=== PATIENT | male | born 1950 | race Caucasian/White ===

== ENCOUNTER 2016-12-29 06:05 | Inpatient (IN) ==
[2016-12-29] MEDS ORDERED: Albuterol 2.5 MG/3 ML NEBULIZER IH ONE (06:23)
[2016-12-29] MEDS ORDERED: Vancomycin 1,500 MG in D5% in Water 250 ML IVPB ONE (06:23)
[2016-12-29] MEDS ORDERED: Heparin 1,000 UNITS/500 mL NS 500 ML ONE (06:23)
[2016-12-29] MEDS ORDERED: Lidocaine 1% 20 ML MDV ID ONE (06:23)
[2016-12-29] MEDS ORDERED: CeFAZolin Pre 2,000 MG/100 ML 2,000 MG/100 ML BAG IVPB ONE (06:23)
[2016-12-29] MEDS ORDERED: Ringers Solution, Lactated 1,000 ML IVC SCH (06:30)
[2016-12-29] MEDS ORDERED: *HR* Propofol 200 MG/20 ML VIAL IVP ONE (06:35)
[2016-12-29] MEDS ORDERED: *HR* FentaNYL (PF) 100 MCG/2 ML VIAL ONE ×3 (06:35→11:59)
[2016-12-29] MEDS ORDERED: *HR* Midazolam HCl 2 MG/2 ML VIAL ONE ×2 (06:35→10:32)
[2016-12-29] MEDS ORDERED: *HR* Succinylcholine 200 MG/10 ML VIAL IVP ONE (06:37)
[2016-12-29] MEDS ORDERED: *HR* Heparin 5,000 UNIT/ML VIAL ONE ×2 (06:37→14:10)
[2016-12-29] MEDS ORDERED: Dexamethasone 4 MG/ML VIAL ONE ×2 (06:37→10:29)
[2016-12-29] MEDS ORDERED: Lidocaine -MPF 2% 2 ML VIAL ONE ×3 (06:37→10:29)
[2016-12-29] MEDS ORDERED: *HR* Phenylephrine 10 MG/ML VIAL ONE (06:37)
[2016-12-29] MEDS ORDERED: Lidocaine -MPF 4% 5 ML AMPUL ONE (06:37)
[2016-12-29] MEDS ORDERED: *HR* Rocuronium Bromide 50 MG/5 ML VIAL ONE ×2 (06:37→10:25)
[2016-12-29] MEDS ORDERED: Ondansetron 4 MG/2 ML VIAL ONE ×2 (06:37→10:29)
[2016-12-29] MEDS ORDERED: *HR* Remifentanil 2 MG VIAL IVP ONE ×2 (06:45→10:36)
[2016-12-29] MEDS ORDERED: Vancomycin 1,000 MG VIAL ONE (06:46)
[2016-12-29] MEDS ORDERED: Heparin 1,000 UNITS/500 mL NS 2,000 ML ONE (06:47)
[2016-12-29] MEDS ORDERED: EPHEDrine 50 MG/ML VIAL ONE (07:11)
[2016-12-29] MEDS ORDERED: Water for inj. (sterile) 10 ML IV ONE ×3 (07:11→13:20)
--- NOTE | 2016-12-29 07:46 | History & Physical Report ---
Date of Encounter: 12/29/16 Time of Encounter: 07:25 24 Hour HP Update - Instructions Instructions: If the History and Physical is less than 30 days old and was completed prior to A.M. admission and or procedure and has NOT been updated on calendar day of procedure please complete this update prior to performing procedure. - Update Patient reports changes in Medical Condition: No Changes in assessment/condition: No Changes in Medication: No Preop tests/diagnostics Reviewed: Yes Surgery Remains Indicated: Yes Consent for Planned Operative Procedure(s) Verified: Yes - Pre-Operative Checklist Preoperative Checklist Indicated: Yes Prophylactic Antibiotic Ordered: Yes (Vancomycin due to risk of MRSA) Home Medications Include Beta Deidre: Yes Beta Deidre Taken Today (Day of Surgery): Yes Beta Deidre Taken Yesterday (Day Prior to Surgery): Yes Is VTE Prophylaxis Indicated?: Yes
--- NOTE | 2016-12-29 09:37 | Anesthesia Evaluation PreOp ---
Date of Encounter: 12/29/16 Time of Encounter: 09:35 - Past History Planned Operation: Endovascular AAA repair Cardiac History: [place], HTN, Hyperlipidemia, Other (AAA) Pulmonary History: Smoker, COPD WHIZZER History: Denies Any Significant HX Other Medical History: Renal (renal stones) Alcohol Use: none, unknown Drug use: none Medications and Allergies Albuterol Sulfate [Ventolin Hfa] 2 puff IH Q4H PRN 12/29/16 [History] Amlodipine Besylate [Amlodipine Besylate] 10 mg PO DAILY 12/29/16 [History] Atenolol [Tenormin] 50 mg PO DAILY 12/29/16 [History] Atorvastatin Calcium [Atorvastatin Calcium] 80 mg PO DAILY 12/29/16 [History] Escitalopram [Lexapro] 20 mg PO DAILY 12/29/16 [History] Hydrochlorothiazide [Hydrochlorothiazide] 25 mg PO DAILY 12/29/16 [History] Omeprazole 20 mg PO DAILY 12/29/16 [History] Ramipril [Ramipril] 10 mg PO BID 12/29/16 [History] TraZODone 50 mg PO HS 12/29/16 [History] Allergies No Known Allergies Allergy (Verified 12/29/16 06:54) - Meds/Allergy Pre-op Review Medications Reviewed: Yes Allergies Reviewed: Yes Beta Blockers on Current Med List: Yes If Beta Blockers taken, Date/Time (Last Dose taken): 12-29-16 atenolol midnight Anesthesia Results - Labs Laboratory Tests 12/23/16 12/23/16 12/23/16 15:58 15:58 15:58 WBC 7.2 Hgb 16.8 Hct 49.8 Plt Count 223 PT 11.1 INR 1.0 APTT 29.7 Sodium 135 L Potassium 4.2 Chloride 101 Carbon Dioxide 27 BUN 10 Creatinine 0.81 Est GFR ( Amer) > 60 Est GFR (Non-Af Amer) > 60 BUN/Creatinine Ratio 12 Glucose 103 H Calculated Osmolality 279 L Calcium 9.5 - Imaging EKG: report reviewed, image reviewed (SR, nonspecific ST & T wave abnormality) Additional studies: -2016 Regadenoson Nuclear Stress: No sign ECG changes with regadenoson Gated LVEF 56% there is a small, mod-severe intensity, fixed perfusion defect in the basal- apical inferior wall findings are consistent with small-medium sized prior [place] in inferior wall no evidence of reversible ischemia Anesthesia Exam Last Vital Signs Temp 98.4 F 12/29/16 06:31 Pulse 75 12/29/16 06:31 Resp 18 12/29/16 06:31 BP 149/86 12/29/16 06:31 Pulse Ox 91 L 12/29/16 06:31 Weight: 92 kg NPO (# of Hours): >> 8 hrs - HEENT Pupil (Motor): Pupils equal, EOMI Mallampati: II Teeth: Edentulous Denture Type: Upper: Complete, Lower: Complete Oral Opening: Greater than 3 - WHIZZER LOC: Oriented WHIZZER Motor: Normal RUE, Normal LUE, Normal RLE, Normal LLE, Normal Face - Cardiac Rhythm: Regular Murmur: None - Pulmonary Breath Sounds: bilateral Clear (wheezing bilaterally) Respiratory Effort: Symmetrical Anesthesia Assess/Plan ASA Score: 3 Modified Conley Scale for Level of Consciousness: Cooperative, oriented, and tranquil Anesthetic Plan: General Monitoring Plan: Standard Monitors, A-Line Recovery Plan: PACU
--- NOTE | 2016-12-29 13:10 | Anesthesia Procedures ---
Date of Encounter: 12/29/16 Time of Encounter: 11:00 Procedures: Anesthesia - Arterial Line Consent obtained: verbal consent Time out performed: Yes Sedation: Versed (mg): 2 Sedation: Fentanyl (mcg): 100 Supplemental Oxygen via Nasal Cannula (L/min): 4 Local Anesthetic: Lidocaine 1% Amount of Anesthetic used (mls): 0.5 Size (Gauge): 20 Length (inches): 1 3/4 Technique Used: sterile prep, direct puncture technique Post-Procedure: line taped into place Patient tolerated procedure: well Complications: none Site: Radial L Vitals: Vital Signs/O2 Sat/Glucose, Most Current Pulse Resp BP Pulse Ox 12/29/16 11:22 75 16 126/80 97 12/29/16 11:20 73 16 132/88 96 Comments: performed by KELLY Adler with Dr. Yo supervising.
[2016-12-29] MEDS ORDERED: *HR* HYDROmorphone (PF) 1 MG/ML SYRINGE IVP PRN (14:05)
[2016-12-29] MEDS ORDERED: *HR* Labetalol 100 MG/20 ML MDV IVP PRN (14:05)
[2016-12-29] MEDS ORDERED: Neostigmine Methylsulfate 3 MG/3 ML SYRINGE ONE (14:07)
[2016-12-29] MEDS ORDERED: Water for inj. (sterile) 20 ML IV ONE (14:28)
[2016-12-29] MEDS ORDERED: *HR* HYDROmorphone 2 MG/ML SYRINGE ONE (14:51)
--- NOTE | 2016-12-29 15:26 | Operative Note ---
Date of procedure: 12/29/16 Pre-op diagnosis: AAA Post-op diagnosis: same Procedure: 1. Introduction of catheter into the aorta via right common femoral artery. 2. Introduction of catheter into the aorta via left common femoral artery. 3. Right femoral vessel exposure for endograft placement. 4. Left femoral vessel exposure for endograft placement. 5. Endograft repair of abdominal aortic aneurysm with Cook Zenith graft and two docking limbs including radiologic supervision and interpretation. Complications: None Anesthesia: GETA Surgeon: Jun Verdugo [facility] Interpreter: Ugo Hardin Estimated blood loss (cc): 100 Specimen: None Condition: stable Disposition: PACU Procedure in Detail: Indications: The patient is a 66 year old male who was found to have a large infrarenal abdominal aortic aneurysm. His anatomy was acceptable for endograft placement. Surgery was recommended to reduce his risk of rupture. Procedure: The patient was identified, brought to the operating room and placed in the supine position on the operating room table. After induction of general endotracheal anesthesia, the patient was cleaned and draped in normal sterile fashion. Oblique incisions were made over both groins sharply. Hemostasis was obtained with electrocautery. Using blunt and sharp and electrocautery dissection, the bilateral common, deep and superficial femoral arteries were dissected circumferentially and surrounded with Vesseloops. The patient received 5000 units of heparin intravenously and then bilateral femoral punctures with large-bore needles were performed. Bentson wires were advanced into the aorta under fluoroscopic view. Given the anatomy, the main body was selected to be the right side of the patient. The needles were exchanged for bilateral #8-Upper Sorbian sheaths and a long Pigtail catheter was advanced over the right wire into the aortic arch. The wire was replaced with a Lunderquist wire. The catheter was removed and repositioned in the suprarenal aorta via the left femoral artery. The main body was inserted over the Lunderquist wire with the contralateral limb being in the anterolateral position. An aortogram was then performed at the level of the renal artery. The graft was positioned just inferior to the renal arteries and the first 2 segments were deployed. Again an aortogram revealed adequate infrarenal placement. The graft was then further opened to the contralateral limb exposed. A final angiogram was performed confirming adequate infrarenal placement. The suprarenal stent was deployed in the usual fashion. The contralateral limb was then selected with a Bentson wire using a guiding catheter. Intragraft placement of the wire was confirmed by placing the pigtail and spinning it freely as well as injecting a small amount of contrast. An oblique view of the pelvis was performed with contrast to size the left extension limb. The #8-Upper Sorbian sheath was removed and exchanged for the appropriate limb, which was advanced under fluoroscopic view and positioned. It was then expanded. The introducer was removed. The remaining portion of the main body was deployed, the top cap was retrieved and the introducer was removed. An oblique view of the right pelvis was performed in a similar fashion to determine the length of the graft on the right. The graft extension was then advanced on the right and positioned in the usual fashion. Upon completion of the graft docking limb extension, a Coda balloon was then advanced into the graft proximal and distal endpoints as well as overlap were expanded with gentle pressure. The balloon was left in the suprarenal position and a Flush catheter was placed in the suprarenal aorta. A Flush completion angiogram revealed no evidence of an endoleak. Tension was applied to the Vesseloops in the groin. The bilateral sheaths were then removed. After confirming hemodynamic stability, the wires were then removed. The bilateral arteriotomies were repaired with a running 6-0 Prolene. Antibiotic irrigation was infused into the groin. Platelet rich and platelet poor plasma were infused into the incisions. The bilateral groins were closed with a single layer of 2-0 Vicryl followed by two layers of 3-0 Vicryl followed by a layer of 3-0 monocryl in the subcuticular region. Sterile dressings were applied. The patient was then extubated and taken to the recovery room in stable condition. DEVICE SIZES: 1. Main body, 28 x 82. 2. Contralateral leg, 13 x 107. 3. Ipsilateral leg, 13 x 107.
--- NOTE | 2016-12-29 15:52 | Anesthesia Evaluation Post Op ---
Date of Encounter: 12/29/16 Time of Encounter: 15:51 - Vital Signs Vital Signs: Last Vital Signs Temp 97.4 F L 12/29/16 15:47 Pulse 91 12/29/16 15:47 Resp 16 12/29/16 15:47 BP 114/67 12/29/16 15:47 Pulse Ox 93 L 12/29/16 15:47 - Lungs Lungs: Clear Ascult./Percussion - Airway Airway: Non-obstructed - Cardiovascular Regular Rate - Mental Status Mental Status: Alert & Oriented, Answers Appropriately - Pain Pain Scale: 3 - Nausea Vomiting Nausea Vomiting: Not Present - Hydration Hydration: Ice chips, Contreras catheter - Discharge PostOp Status: Transfer Patient to floor
--- NOTE | 2016-12-29 15:59 | Operative Note ---
Date of procedure: 12/29/16 Pre-op diagnosis: Abdominal aortic aneurysm Post-op diagnosis: same Procedure: Endovascular repair of abdominal aortic aneurysm using a Cook Zenith stent graft system. Main body placed via the right side which was a 28 x 82 stent graft. The iliac limbs were both 13 x 107 mm spiral Z stent graft. Bilateral open exposure of femoral arteries Multiple non-selective catheterizations of the aorta with aortograms bilaterally Complications: None Anesthesia: GETA Surgeon: Jun Verdugo Co-Surgeon: Ugo Hardin Estimated blood loss (cc): 100 Specimen: None Condition: stable Disposition: PACU Procedure in Detail: History Geovanny Moralez is a 66-year-old white male who was found to have an abdominal aortic aneurysm. This aneurysm was documented on CT scanning to be greater than 5 cm. The patient now comes to the operating room for elective repair of this aneurysm. Procedure After informed consent was obtained the patient was taken to the operating room. General endotracheal anesthesia was established. The abdomen groin and upper thighs were sterilely prepped and draped. A 2 team surgical approach was utilized for this procedure because of the patient's comorbid conditions. Also this would allow for increased complex decision-making in minimalization of anesthetic time and decrease blood loss. The femoral arteries were then exposed. An oblique incision was created bilaterally. Dissection was carried down to the common femoral artery. The vessels were very deep. Vessels were controlled with vessel loops. With this done the common femoral arteries were punctured with an 18-gauge needle oriented in a retrograde fashion. A guidewire was inserted and then this was followed by a 8 Tanzanian sheath and dilator. The dilator was removed and the sheath was aspirated and flushed. 5000 units of heparin were then administered intravenously. With fluoroscopic control the wires were manipulated so that there were placed in the proximal descending thoracic aorta. On the right side the pigtail catheter was placed and the wire was exchanged for a superstiff Lunderquist wire. The pigtail catheter was then transferred over to the left side. An abdominal aortogram was then obtained. The main body of the graft was selected and this was placed via the right side. This was a 28 x 82 Cook Zenith stent graft. The suprarenal fixation component was deployed and the main body was deployed to the point that the docking limb was opened. Then from the left side the wire was reinserted and manipulated so that it was placed within the main body of the stent graft. Contrast was injected to assure that the position was correct. With this done the pigtail catheter was reinserted and then the wire was exchanged for a superstiff Lunderquist wire. A retrograde injection was then made from the left groin sheath to identify the aorta as well as the left iliac bifurcation. The left limb was then treated with a 13 x 107 mm spiral Z Limb area and this was deployed with the end point proximal to the iliac bifurcation. Attention was then directed back to the right side. The main body was fully deployed. The top cap was secured and removed. The marker pigtail was reinserted. A retrograde injection was then performed from the right groin to identify the right iliac bifurcation. A 13 x 107 mm spiral Z limb was selected for the right side. This was then deployed to secure the graft and to preserve the right iliac artery bifurcation. With this done a Coda balloon was inserted from both the left and right side and the graft was gently expanded. Then the marker pigtail catheter was reinserted on the right side. A completion aortogram was obtained. This demonstrated patency of the stent graft. The renal arteries were preserved. The iliac bifurcations were preserved. There were no endo-leaks identified. The wires and catheters were then removed. The puncture site at the femoral level was repaired bilaterally using 6-0 Prolene suture. After appropriate backbleeding and flushing the groin areas were inspected for hemostasis. Excellent palpable pulses and Doppler signals were identified bilaterally. The wounds were then closed in layers using absorbable suture. There were no intraoperative complications. The patient tolerated the procedure well. The patient was taken to the recovery room in stable condition.
[2016-12-29] MEDS ORDERED: *HR* Labetalol 20 MG/4 ML SYRINGE IVP PRN (16:17)
[2016-12-29] MEDS ORDERED: *HR* Morphine 2 MG/ML SYRINGE IVP PRN (16:17)
[2016-12-29] MEDS ORDERED: Ondansetron 4 MG/2 ML VIAL IVP PRN (16:17)
[2016-12-29] MEDS ORDERED: Acetaminophen 325 MG TABLET PO PRN (16:17)
[2016-12-29] MEDS ORDERED: *HR* OxyCODONE Immed Rel 5 MG TABLET PO PRN (16:17)
[2016-12-29] MEDS ORDERED: Naloxone 0.4 MG/ML INJ IVP PRN (16:17)
[2016-12-29] MEDS ORDERED: 0.9 % Sodium Chloride 1,000 ML IVC SCH (16:17)
[2016-12-29] MEDS ORDERED: *HR* HYDROcodone/Acet 5/325 mg TABLET PO PRN (16:17)
[2016-12-29] MEDS: ceFAZolin 2,000 MG in D5% in Water 100 ML IVPB SCH (20:37)
[2016-12-29] MEDS ORDERED: traZODone 50 MG TABLET PO SCH (21:00)
[2016-12-30] MEDS ORDERED: Vancomycin 1,500 MG in D5% in Water 250 ML IVPB ONE (00:30)
[2016-12-30 04:32] LABS: Basophils % 0.1 %; Eosinophils % 0.1 %; Hematocrit 43.3 % (37.5-50.1); Immature Granulocytes % 0.3 % (0-4); Lymphocytes # 0.7 K/mcL (0.6-4.6); Lymphocytes % 5.2 %; Mean Corpuscular Hemoglobin 32.6 pg (28.0-33.3); Mean Corpuscular Volume 98.9 fL (83.0-100.0); Mean Platelet Volume 9.4 fL (9.4-12.4); Monocytes # 0.8 K/mcL (0.0-1.3); Monocytes % 6.1 %; Neutrophils # 11.1 K/mcL (1.6-8.9); Platelet Count 188 K/mcL (140-400); Red Blood Count 4.38 M/mcL (4.19-5.50); Red Cell Distribution Width 13.2 % (11.5-14.5); Segmented Neutrophils % 88.2 %
[2016-12-30] MEDS: ceFAZolin 2,000 MG in D5% in Water 100 ML IVPB SCH (04:33)
[2016-12-30 04:36] LABS: Hemoglobin 14.3 g/dL (12.9-16.9)
[2016-12-30 04:48] LABS: BUN/Creatinine Ratio 17 (6-26); Blood Urea Nitrogen 14 mg/dL (8-26); Calcium 8.3 mg/dL (8.6-10.8); Carbon Dioxide 27 mEq/L (19-29); Chloride 103 mEq/L (98-109); Glucose 139 mg/dL (70-99); Osmolality,Calculated 289 (280-300); Potassium 4.3 mEq/L (3.5-4.5); Sodium 138 mEq/L (136-145); eGFR For African Americans > 60 (> 60); eGFR For Non-African Americans > 60 (> 60)
[2016-12-30] MEDS ORDERED: *HR* Heparin 5,000 UNIT/ML VIAL SQ SCH ×2 (06:00)
--- NOTE | 2016-12-30 07:13 | Discharge Summary ---
Date of Encounter: 12/30/16 Time of Encounter: 07:40 - Discharge Diagnosis (1) AAA (abdominal aortic aneurysm) without rupture Priority: Primary Status: Chronic Comments: The patient is postoperative day #1 after endograft repair of his abdominal aortic aneurysm. He is tolerating a diet. His incisions are healing and he has no abdominal pain. He will be discharged today. (2) Essential hypertension Priority: Secondary Status: Chronic Comments: The patient was counseled regarding atheorsclerotic risk factor reduction. (3) Mixed hyperlipidemia Priority: Secondary Status: Chronic (4) Tobacco abuse Priority: Secondary Status: Chronic Comments: The patient was counseled regarding smoking cessation. - Discharge Medications Prescriptions: Oxycodone HCl/Acetaminophen [Percocet 5-325 mg Tablet] 1 each PO Q4H PRN #30 tablet PRN Reason: POSTOPERATIVE PAIN Home Medications: Albuterol Sulfate [Ventolin Hfa] 2 puff IH Q4H PRN 12/29/16 [History] Amlodipine Besylate 10 mg PO DAILY 12/29/16 [History] Atenolol [Tenormin] 50 mg PO DAILY 12/29/16 [History] Atorvastatin Calcium 80 mg PO DAILY 12/29/16 [History] Escitalopram [Lexapro] 20 mg PO DAILY 12/29/16 [History] Hydrochlorothiazide 25 mg PO DAILY 12/29/16 [History] Omeprazole 20 mg PO DAILY 12/29/16 [History] Ramipril 10 mg PO BID 12/29/16 [History] TraZODone 50 mg PO HS 12/29/16 [History] Oxycodone HCl/Acetaminophen [Percocet 5-325 mg Tablet] 1 each PO Q4H PRN #30 tablet 12/30/16 [Rx] Allergies/Adverse Reactions: Allergies No Known Allergies Allergy (Verified 12/29/16 06:54) Date of admission: 12/29/16 16:13 Primary care physician: Kym Baumann CNP Discharging clinician: Jun Verdugo Anticipated date of discharge: 12/30/16 - Patient Status Disposition: Home, Self-Care Condition: Good Functional capacity at discharge: independent ambulation Overall status at discharge: patient is back to baseline - Discharge Instructions Instructions: Oxycodone/Acetaminophen (By mouth), Peripheral Vascular Disorders (DC), Surgical Site Infections (GEN) Follow Up With: Jun Verdugo MD [Partnered Physician] - 02/08/17 1:00 pm Kym Baumann CNP [Primary Care Provider] - 01/06/17 1:20 pm () Additional Instructions: May remove bandages on 12/31/2016. May shower on 12/31/16. Wash wounds gently and pat to dry. Apply dry gauze to groin wounds daily for 7 days. No tub baths or swimming until 02/24/2017. Call Dr. Verdugo at [phone] with questions or concerns. - Diet and Activity Activity: increase activity as tolerated Diet: advance to your usual diet - Hospital Course Hospital course: Mr. Moralez is a 66 year old male with a history of hypertension, hyperlipidemia, tobacco abuse and an abdominal aortic aneurysm. He was admitted on 12/29/16 and taken to the OR. He underwent endograft repair of his aneurysm and tolerated the procedure well. On postoperative day #1 he was tolerating a diet and his pain was well controlled. He was discharged in stable condition without complication. - Time Spent with Patient Total time spent providing and/or coordinating discharge services: Exam Vital Signs, Last 4 Hours Temp Pulse Resp BP Pulse Ox 12/30/16 04:35 90 12/30/16 04:17 97.9 F 84 16 127/77 93 L General: Present: Conversant, No Apparent Distress HEENT: Present: Pupils equal Neck: Absent: Tracheal deviation Cardiac: Present: Reg Rate and Rhythm, Normal S1 and S2 Lungs: Present: Normal Breath Sounds, No Wheeze, Rales, Rhonchi Neuro: Present: Alert and responsive, No focal deficits noted Abdomen: Present: Soft, Non-tender. Absent: Masses Vascular: Present: Normal capillary refill, Surgical incisions (clean,dry and intact withotu erythema). Absent: Cyanosis, Edema - VTE Documentation of Mechanical Device: Intermittent pneumatic compression device
[2016-12-30] MEDS: *HR* Metoprolol 5 MG/5 ML VIAL IVP SCH ×2 (08:15→11:16)
[2016-12-30] MEDS ORDERED: Lisinopril 20 MG TABLET PO SCH (09:00)
[2016-12-30] MEDS ORDERED: hydroCHLOROthiazide 25 MG TABLET PO SCH (09:00)
[2016-12-30] MEDS ORDERED: amLODIPine 5 MG TABLET PO SCH (09:00)
[2016-12-30 11:08] VITALS: BP 147/80
== END 2016-12-30 15:45 | disposition home or self-care (01) | DRG 269 ==
LOC: SAMDAY 06:05 → 2NNU 16:13
PROVIDERS: ADMIT Surgery; ATTEND Surgery